=== PATIENT | male | born 1980 | race Two or more races ===

== ENCOUNTER 2021-12-13 08:41 | Emergency (ER) | payer MEDICAID ==
[~2021-12-13] VITALS: Ht 172.7 cm; Wt 101.6 kg
[2021-12-13 09:32] VITALS: BP 137/87
[2021-12-13] MEDS ORDERED: TETRACAINE HCL 0.5% OPTH(EYE) SOLN 4ML LEFTEYE ONE (10:00)
[2021-12-13] MEDS ORDERED: FLUORESCEIN SOD OPTH TEST STRIP LEFTEYE ONE (10:00)
[2021-12-13] MEDS ORDERED: CIP03OS LEFTEYE (10:38)
== END 2021-12-13 10:39 | disposition home or self-care (01) ==
LOC: ER 08:41
DX: S00.252A Superficial foreign body of left eyelid and periocular area, initial encounter (principal); E11.9 Type 2 diabetes mellitus without complications; X58.XXXA Exposure to other specified factors, initial encounter; Y93.89 Activity, other specified; Y92.89 Other specified places as the place of occurrence of the external cause; Y99.8 Other external cause status